=== PATIENT | female | born 1960 | race Caucasian/White ===

== ENCOUNTER 2016-06-12 18:42 | Emergency (ER) | payer OTHER ==
[~2016-06-12] VITALS: Ht 160 cm; Wt 80.5 kg
[~2016-06-12 18:42] MED LIST: ACET500C5 PO; CETI10CA PO; CIPR500T4 PO; CLIN-73 PO; CYCL5TAB PO; GLIM1TAB2 PO; GUAI120S26 PO; HYDR-906 PO; IBUP-1542 PO; METF500T4 PO; NITR-58 PO; ONDA4TAB14 PO; PHEN-538 PO
[2016-06-12 18:48] VITALS: Ht 160 cm; Wt 80.5 kg
[2016-06-12] MEDS ORDERED: MUPI22OI2 TOP (20:39)
[2016-06-12] MEDS ORDERED: FLUC150T17 PO (20:39)
[2016-06-12] MEDS ORDERED: CEPH-443 PO (20:39)
--- NOTE | 2016-06-12 20:41 | ERD ---
ER Documentation Chief Complaint Date/Time DATE: 06/12/16 TIME: 20:39 Chief Complaint right leg pain, redness, swelling warm to touch HPI 55-year-old woman presents with irritation to the medial aspect of the right lower leg and itching and irritation to the inner thigh creases bilaterally, she is worried about candidal skin infection. Last month she was diagnosed with a right lower extremity cellulitis and treated as an inpatient, and discharged with ciprofloxacin to use 10 days, she only used 6 days worth. This time around she denies fevers or chills, no pain with ambulation, no calf or leg swelling. Patient denies chest pain or shortness of breath, no headache or blurry vision, no dysuria or increased urinary frequency. ROS All systems reviewed and are negative except as per history of present illness. Medications Home Meds Active Scripts Mupirocin* (Bactroban*) 2% -22 Gram Oint...g., 1 APPLIC TOP BID for 14 Days, #1 TUB Prov:HERB HA MD 06/12/16 Cephalexin* (Keflex*) 500 Mg Capsule, 500 MG PO TID for 7 Days, CAP Prov:HERB HA MD 06/12/16 Fluconazole* (Diflucan*) 150 Mg Tablet, 150 MG PO ONCE, #1 TAB Prov:HERB HA MD 06/12/16 Clindamycin Hcl* (Clindamycin Hcl*) 300 Mg Capsule, 300 MG PO TID for 10 Days, CAP Prov:PETE GEIGER PA-C 05/11/16 Acetaminophen* (Tylophen*) 500 Mg Capsule, 1 CAP PO Q6H Y for PAIN AND OR ELEVATED TEMP, #20 CAP Prov:JANIYA GARBER NP 05/09/16 Cetirizine Hcl* (Zyrtec*) 10 Mg Capsule, 10 MG PO DAILY, #30 TAB.CHEW Prov:JANIYA GARBER NP 05/09/16 Ajahwxhfoqn-Y-Wwxtxpckkd Hb* (Guaifenesin* DM Syrup) 120 Ml Syrup, 10 ML PO Q4H Y for COUGH, #120 ML Prov:JANIYA GARBER NP 05/09/16 Phenazopyridine Hcl* (Pyridium*) 200 Mg Tab, 200 MG PO TID Y for URINARY PAIN, # 6 TAB Prov:JANIYA GARBER NP 05/09/16 Ondansetron (Ondansetron Odt) 4 Mg Tab.rapdis, 4 MG PO Q8 Y for NAUSEA AND/OR VOMITING, #30 TAB Prov:JANIYA GARBER NP 05/09/16 Ciprofloxacin Hcl* (Ciprofloxacin Hcl*) 500 Mg Tablet, 500 MG PO BID for 10 Days , TAB Prov:JANIYA GARBER NP 05/09/16 Hydrocodone/Acetaminophen ([place] 5-325 Tablet) 1 Each Tablet, 1 TAB PO Q6H Y for PAIN, #7 TAB Prov:LEENA DESAI NP 04/29/16 Ibuprofen* (Motrin*) 600 Mg Tab, 600 MG PO Q6, #15 TAB Prov:LEENA DESAI NP 04/29/16 Nitrofurantoin Monohyd Macrocr* (Macrobid*) 100 Mg Capsr, 100 MG PO BID for 5 Days, CAP Prov:LEENA DESAI NP 04/29/16 Cyclobenzaprine Hcl* (Cyclobenzaprine Hcl*) 5 Mg Tablet, 5 MG PO Q8H Y for PAIN for 7 Days, TAB Prov:SNEHAL HINTON PA-C 03/03/15 Reported Medications Nitrofurantoin Monohyd Macrocr* (Macrobid*) Unknown Strength Capsr, PO BID, CAP 05/09/16 Glimepiride* (Glimepiride*) Unknown Strength Tablet, PO WITH BREAKFAST DINNE, TAB 05/09/16 Metformin* (Glucophage*) Unknown Strength Tab, PO DAILY, #20 TAB 05/09/16 Allergies Allergies: Coded Allergies: No Known Allergy (Unverified , 05/09/16) PMhx/Soc Hypertension History of Surgery: Yes (tonsillectomy, appendectomy) Anesthesia Reaction: No Hx Neurological Disorder: No Hx Respiratory Disorders: No Hx Cardiac Disorders: No Hx Psychiatric Problems: No Hx Alcohol Use: No Hx Substance Use: No Hx Tobacco Use: No Smoking Status: Never smoker FmHx Family History: No diabetes Physical Exam Vitals Vital Signs Date Time Temp Pulse Resp B/P Pulse Ox O2 Delivery O2 Flow Rate FiO2 06/12/16 18:48 97.0 94 20 141/83 97 Physical Exam GENERAL: Well-developed, well-nourished, well-hydrated, in no apparent distress , looks nontoxic in appearance HEENT: Moist mucous membranes, pink conjunctiva, no cervical spine tenderness or step-off deformities, no goiter, no jaundice or icterus, extraocular movements intact without pain. No submandibular induration, and no pharyngeal erythema NEURO: Alert and oriented 3, cranial nerves II through XII intact bilaterally, pupils equal round reactive to light, no focal deficits or facial asymmetry, sensation intact distally Strength 5/5 in upper and lower extremities bilaterally CARDIAC: Regular rate and rhythm, no murmurs rubs or gallops LUNGS: Clear bilaterally no wheezing crackles or stridor ABDOMEN: Soft nontender, no guarding, no rigidity, no rebound, no psoas sign no obturator sign. Normoactive bowel sounds SKIN: Warm and dry to touch, superficial irritation to the medial aspect of the right lower leg without skin induration or purulent discharge, no lacerations, no ecchymosis, no target lesions, and without ulcers EXTREMITIES: No clubbing cyanosis or edema, calves are bilaterally symmetrical, no Homans sign, no popliteal cord sign. Distal pulses equal and bilateral PSYCH: Normal affect without agitation or irritability Results 24 hrs Current Medications Medications (Trade) Dose Ordered Sig/[place] Route PRN Reason Start Time Stop Time Status Last Admin Dose Admin Fluconazole (Diflucan) 100 mg ONCE ONCE PO 06/12/16 21:00 06/12/16 21:01 DC 06/12/16 21:00 Procedures/MDM Given her concern and my suspicion I administered fluconazole 100 mg p.o. for vaginitis. I will treat her as as an outpatient for vaginitis and possible early cellulitis of the right lower leg given her recent history, although I suspect this is very early in its course and may even be secondary only to cold weather related dermatitis and chronic mild stasis dermatitis. I reviewed her previous medical records. Differential diagnoses considered, included but not limited to acute coronary syndrome, pulmonary embolism, aortic dissection, abdominal aortic aneurysm, sepsis, stroke, meningitis, encephalitis, pneumonia, appendicitis, cholecystitis , bowel obstruction, pyelonephritis, nephrolithiasis, cystitis, as well as metabolic, hematologic, and electrolyte abnormalities. As well as abscess, cellulitis, fractures, and dislocations. Patient feels much better at this time, and vital signs are normal, symptoms have improved. I did give strict instructions to return to the ED if symptoms continue or worsen, patient will otherwise follow-up with primary care physician. Patient understood instructions and agreed to plan. Departure Diagnosis: Primary Impression: Vaginitis Chronicity: acute Qualified Code: N76.0 - Acute vaginitis Additional Impression: Cellulitis of right lower leg Condition: Good Patient Instructions: Cellulitis, Vaginitis, Yanelis HERB HA MD Jun 12, 2016 20:40
[2016-06-12] MEDS ORDERED: FLUCONAZOLE 100 MG TAB PO ONE (21:00)
== END 2016-06-12 21:05 | disposition home or self-care (01) ==
LOC: FTE 18:42
DX: N76.0 Acute vaginitis (principal); L03.115 Cellulitis of right lower limb; Z79.84 Long term (current) use of oral hypoglycemic drugs
CPT/HCPCS: Z7502; Z7610; 99284

== ENCOUNTER 2016-11-27 22:41 | Emergency (ER) | payer OTHER ==
[~2016-11-27] VITALS: Ht 160 cm; Wt 81.5 kg
[~2016-11-27 22:41] MED LIST changes: +CEPH-443 PO; +FLUC150T17 PO; +MUPI22OI2 TOP
[2016-11-27 22:46] VITALS: Ht 160 cm; Wt 81.5 kg
[2016-11-27] MEDS ORDERED: CLOT21CR6 VAGINAL (23:39)
[2016-11-27] MEDS ORDERED: CLOT30CR24 TOP (23:39)
[2016-11-27] MEDS ORDERED: CEPH-443 PO (23:39)
[2016-11-27] MEDS ORDERED: IBUP-1542 PO (23:39)
[2016-11-27] MEDS ORDERED: NPH10OT LEFT EAR (23:39)
[2016-11-27] MEDS ORDERED: SULF1TAB31 PO (23:39)
--- NOTE | 2016-11-27 23:59 | ERD ---
ER Documentation Chief Complaint Date/Time DATE: 11/27/16 TIME: 23:50 Chief Complaint left earache x 2 days HPI 36-year-old female sent to emergency department for multiple complaints. Patient is complaining of left ear pain for 2 days, sharp pain, 4/10 worse upon movement of the outer ear, feels swollen inside. Patient denies any discharge. Patient denies any trauma in the ear. Patient denies any fever or chills. Patient is also complaining of right lower leg skin abrasion denies complaining of some pain, worried that she may have another cellulitis. Patient's complaining of pain on the abrasion area sharp pain 4/10 scale, is worse upon touching the area. Patient also is complaining of vaginal itching and whitish vaginal discharge. Patient has a yeast infection before, once medication for this, patient stated that she has taken it before and has helped. ROS All systems reviewed and are negative except as per history of present illness. Medications Home Meds Active Scripts Clotrimazole (Clotrimazole 3) 21 Gm Cream.appl, 1 APPFUL VAGINAL QHS for 7 Days , #1 TUB Prov:JANIYA GARBER NP 11/27/16 Clotrimazole* (Clotrimazole* AF) 1% - 30 Gm Cream.gm., 1 APPLIC TOP BID for 7 Days, TUB Prov:JANIYA GARBER NP 11/27/16 Neomycin/Polymyxin/Hydrocort* (Cortisporin* Otic) 10 Ml Susp, 4 DROP LEFT EAR QID for 7 Days, EA Prov:JANIYA GARBER NP 11/27/16 Ibuprofen* (Motrin*) 600 Mg Tab, 600 MG PO Q6H Y for PAIN AND OR ELEVATED TEMP, #30 TAB Prov:JANIYA GARBER NP 11/27/16 Cephalexin* (Keflex*) 500 Mg Capsule, 500 MG PO QID for 10 Days, CAP Prov:JANIYA GARBER NP 11/27/16 Sulfamethoxazole/Trimethoprim* (Bactrim Ds* Tablet) 1 Each Tablet, 1 TAB PO BID , #20 TAB Prov:JANIYA GARBER NP 11/27/16 Mupirocin* (Bactroban*) 2% -22 Gram Oint...g., 1 APPLIC TOP BID for 14 Days, #1 TUB Prov:HERB HA MD 06/12/16 Cephalexin* (Keflex*) 500 Mg Capsule, 500 MG PO TID for 7 Days, CAP Prov:HERB HA MD 06/12/16 Fluconazole* (Diflucan*) 150 Mg Tablet, 150 MG PO ONCE, #1 TAB Prov:HERB HA MD 06/12/16 Clindamycin Hcl* (Clindamycin Hcl*) 300 Mg Capsule, 300 MG PO TID for 10 Days, CAP Prov:PETE GEIGER PA-C 05/11/16 Acetaminophen* (Tylophen*) 500 Mg Capsule, 1 CAP PO Q6H Y for PAIN AND OR ELEVATED TEMP, #20 CAP Prov:JANIYA GARBER NP 05/09/16 Cetirizine Hcl* (Zyrtec*) 10 Mg Capsule, 10 MG PO DAILY, #30 TAB.CHEW Prov:JANIYA GARBER NP 05/09/16 Abjdqjkxmfx-M-Wlxhnuluax Hb* (Guaifenesin* DM Syrup) 120 Ml Syrup, 10 ML PO Q4H Y for COUGH, #120 ML Prov:JANIYA GARBER NP 05/09/16 Phenazopyridine Hcl* (Pyridium*) 200 Mg Tab, 200 MG PO TID Y for URINARY PAIN, # 6 TAB Prov:JANIYA GARBER NP 05/09/16 Ondansetron (Ondansetron Odt) 4 Mg Tab.rapdis, 4 MG PO Q8 Y for NAUSEA AND/OR VOMITING, #30 TAB Prov:JANIYA GARBER NP 05/09/16 Ciprofloxacin Hcl* (Ciprofloxacin Hcl*) 500 Mg Tablet, 500 MG PO BID for 10 Days , TAB Prov:JANIYA GARBER NP 05/09/16 Hydrocodone/Acetaminophen ([place] 5-325 Tablet) 1 Each Tablet, 1 TAB PO Q6H Y for PAIN, #7 TAB Prov:LEENA DESAI NP 04/29/16 Ibuprofen* (Motrin*) 600 Mg Tab, 600 MG PO Q6, #15 TAB Prov:LEENA DESAI PROCESS ANALYST 04/29/16 Nitrofurantoin Monohyd Macrocr* (Macrobid*) 100 Mg Capsr, 100 MG PO BID for 5 Days, CAP Prov:LEENA DESAI PROCESS ANALYST 04/29/16 Cyclobenzaprine Hcl* (Cyclobenzaprine Hcl*) 5 Mg Tablet, 5 MG PO Q8H Y for PAIN for 7 Days, TAB Prov:SNEHAL HINTON PA-C 03/03/15 Reported Medications Nitrofurantoin Monohyd Macrocr* (Macrobid*) Unknown Strength Capsr, PO BID, CAP 05/09/16 Glimepiride* (Glimepiride*) Unknown Strength Tablet, PO WITH BREAKFAST DINNE, TAB 05/09/16 Metformin* (Glucophage*) Unknown Strength Tab, PO DAILY, #20 TAB 05/09/16 Allergies Allergies: Coded Allergies: No Known Allergy (Unverified , 05/09/16) PMhx/Soc Medical and Surgical Hx: pt denies Medical Hx History of Surgery: Yes (tonsillectomy, appendectomy) Anesthesia Reaction: No Hx Neurological Disorder: No Hx Respiratory Disorders: No Hx Cardiac Disorders: No Hx Psychiatric Problems: No Hx Alcohol Use: No Hx Substance Use: No Hx Tobacco Use: No Smoking Status: Never smoker FmHx Family History: No coronary disease, No diabetes, No other Physical Exam Vitals Vital Signs Date Time Temp Pulse Resp B/P Pulse Ox O2 Delivery O2 Flow Rate FiO2 11/27/16 22:46 98.3 98 20 147/66 98 Physical Exam GENERAL: The patient is well developed and appropriate for usual state of health, in no apparent distress. HEENT: Atraumatic. Ears: Normal tympanic membrane, no erythema or bulging. Left ear canal noted to be erythematous and swollen. Right ear canal is normal. Nose : normal nasal turbinates, no erythema or swelling. Normal nasal discharge. Throat: oropharynx clear. No tonsillar swelling or tonsillar exudates. No lymphadenopathy. CHEST: Clear to auscultation bilaterally. There are no rales, wheezes or rhonchi. HEART: Regular rate and rhythm. No murmurs, clicks, rubs or gallops. No S3 or S4. ABDOMEN: Soft, nontender and nondistended. Good bowel sounds. No rebound or guarding. No gross peritonitis. No gross organomegaly or masses. No Olvera sign or McBurney point tenderness. BACK: No midline or flank tenderness. EXTREMITIES: Equal pulses bilaterally. There is no peripheral clubbing, cyanosis or edema. No focal swelling or erythema. Full range of motion. Grossly neurovascularly intact. NEURO: Alert and oriented. Cranial nerves 2-12 intact. Motor strength in all 4 extremities with 5/5 strength. Sensation grossly intact. Normal speech and gait. SKIN: Noted abrasion on the right lower leg with mild erythema surrounding the area, tenderness on palpation, no fluctuance noted. Negative Homans sign. There is no apparent rash or petechia. The skin is warm and dry. HEMATOLOGIC AND LYMPHATIC: There is no evidence of excessive bruising or lymphedema. No gross cervical, axillary, or inguinal lymphadenopathy. Procedures/MDM Medical decision making: Patient symptoms is likely consistent with otitis externa, no symptoms of otitis media or mastoiditis. No foreign body. No TM perforation. No symptoms of any malignant otitis. Patient also has right lower leg mild cellulitis, no symptoms of any abscess, negative Homans sign, no suspicion for DVT. Patient's of vaginal itching most likely consistent with nicole, will be given clotrimazole vaginal cream and clotrimazole 1% cream. Prescription was given for Bactrim, Keflex Corticosporin otic drops, ibuprofen, is advised to follow-up with primary care doctor in 2-3 days for reevaluation of her symptoms. Patient was advised to return to emergency department. Disposition: Home. Stable. Departure Diagnosis: Primary Impression: Left otitis externa Otitis externa type: unspecified type Chronicity: acute Qualified Code: H60.502 - Acute otitis externa of left ear, unspecified type Additional Impressions: Nicole vaginitis Cellulitis of right lower leg Condition: Stable Patient Instructions: Cellulitis, Vaginitis, Nicole, External Ear Infection ( Adult) JANIYA GARBER NP Nov 27, 2016 23:59
== END 2016-11-28 00:26 | disposition home or self-care (01) ==
LOC: FTE 22:41
DX: H60.502 Unspecified acute noninfective otitis externa, left ear (principal); B37.3 Candidiasis of vulva and vagina; L03.115 Cellulitis of right lower limb; Z79.84 Long term (current) use of oral hypoglycemic drugs
CPT/HCPCS: 99284

== ENCOUNTER 2017-09-14 09:25 | Emergency (ER) | END 2017-09-14 10:52 | disposition home or self-care (01) ==

== ENCOUNTER 2017-11-04 11:56 | Emergency (ER) | END 2017-11-04 13:30 | disposition home or self-care (01) ==

== ENCOUNTER 2018-01-31 18:09 | Emergency (ER) | END 2018-01-31 20:56 | disposition home or self-care (01) ==

== ENCOUNTER 2018-04-19 12:14 | Emergency (ER) | END 2018-04-19 14:03 | disposition home or self-care (01) ==

== ENCOUNTER 2018-04-21 13:29 | Emergency (ER) | END 2018-04-21 16:15 | disposition home or self-care (01) ==

== ENCOUNTER 2018-06-24 14:57 | Emergency (ER) | payer OTHER ==
[~2018-06-24] VITALS: Ht 154.9 cm; Wt 75.0 kg
[~2018-06-24 14:57] MED LIST changes: -ACET500C5 PO; -CEPH-443 PO; -CETI10CA PO; +CILO100T PO; -CIPR500T4 PO; -CLIN-73 PO; -CYCL5TAB PO; -FLUC150T17 PO; -GLIM1TAB2 PO; +GLIM4TAB PO; -GUAI120S26 PO; -HYDR-906 PO; -IBUP-1542 PO; +LIDO700A29 TP; +LINA5TAB PO; -METF500T4 PO; +METF850T13 PO; -NITR-58 PO; -ONDA4TAB14 PO; -PHEN-538 PO; +RAMI2.5C36 PO
[2018-06-24 15:12] VITALS: Ht 154.9 cm; Wt 75.0 kg
[2018-06-24] MEDS ORDERED: KETOROLAC 60 MG INJ IM STA (16:03)
--- NOTE | 2018-06-24 16:11 | ERD ---
ER Documentation Chief Complaint Chief Complaint DYSURIA WITH BACK PAIN SINCE THIS AM & FREQ URINATION HPI This is a 57-year-old female with a history of diabetes mellitus who presents ED with complaints of bilateral low back pain times 3 days. Patient denies any fall or injury to account for back pain. Patient states that she has had a similar back pain in the past. Patient states that the low back pain is worsened by movement and walking, rates it 8 out of 10. Denies tingling, numbness, lack sensation, bowel/bladder incontinence, saddle paresthesias, fever, chills, history of IV drug abuse. Patient also states that she has increased frequency of urination but she states that this is because she has been drinking a lot of water. Denies dysuria, hematuria and all other symptoms. ROS All systems reviewed and are negative except as per history of present illness. Medications Home Meds Active Scripts Diclofenac Sodium* (Voltaren* Gel) 1% -100 Gm Gel, 2 GM TOP QID, #1 TUB Prov:ERON STOKES PA-C 06/24/18 Naproxen* (Naprosyn*) 500 Mg Tablet, 500 MG PO BID PRN for PAIN AND/OR INFLAMMATION, #30 TAB Prov:ERON STOKES PA-C 06/24/18 Cyclobenzaprine Hcl* (Cyclobenzaprine Hcl*) 10 Mg Tablet, 10 MG PO TID, #15 TAB Prov:ERON STOKES PA-C 06/24/18 Mupirocin* (Bactroban*) 2% -22 Gram Oint...g., 1 APPLIC TOP TID for 7 Days, #30 GM Prov:HERB HA MD 04/21/18 Lidocaine (Lidoderm) 1 Each Adh..patch, 1 EACH TP TID PRN for PAIN, #1 TUB Prov:HERB HA MD 04/21/18 Reported Medications Linagliptin (TRADJENTA) 5 Mg Tablet, 5 MG PO DAILY, TAB 04/21/18 Cilostazol* (Cilostazol*) 100 Mg Tablet, 100 MG PO BID, TAB 04/21/18 Glimepiride* (Glimepiride*) 4 Mg Tablet, 4 MG PO WITH BREAKFAST DINNE, TAB 04/21/18 Ramipril (Ramipril) 2.5 Mg Capsule, 2.5 MG PO BID, CAP 04/21/18 Metformin Hcl* (Metformin Hcl*) 850 Mg Tablet, 850 MG PO WITH BREAKFAST DINNE, #60 TAB 04/21/18 Allergies Allergies: Coded Allergies: No Known Allergy (Unverified , 04/19/18) PMhx/Soc History of Surgery: Yes (tonsillectomy, appendectomy) Anesthesia Reaction: No Hx Neurological Disorder: No Hx Respiratory Disorders: No Hx Cardiac Disorders: No Hx Psychiatric Problems: No Hx Miscellaneous Medical Probl: Yes (dm2) Hx Alcohol Use: No Hx Substance Use: No Hx Tobacco Use: No FmHx Family History: diabetes Physical Exam Vitals Vital Signs Date Temp Pulse Resp B/P (MAP) Pulse Ox O2 O2 Flow FiO2 Time Delivery Rate 06/24/18 99.0 88 18 137/65 97 15:12 (89) Physical Exam Physical Exam Vitals signs: Reviewed by me. General: Well developed, well nourished, in no acute distress. Patient is awake and alert. Head: Normocephalic, atraumatic. Eyes: Normal conjunctiva, Pupils PERRLA, EOM intact grossly ENT: Pharynx is clear, Moist mucous membranes, external ears, nose and mouth normal Neck: Supple, no masses, lymphadenopathy or JVD Respiratory: Clear to auscultation bilaterally with no wheezing, rhonchi, rales, no distress Cardiovascular: RRR, no murmurs, rubs, or gallops Abdominal: Soft, non-tender, non-distended, no peritoneal signs Back: No midline tenderness. No flank tenderness, no thoracic or lumbar midline tenderness, there is mild tenderness palpation along the paravertebral muscles in the lumbar spine, straight leg raise negative Neurologic: Alert and oriented, moving all extremities, normal speech, no focal weakness, no cerebellar signs. Normal mentation Skin: warm and dry, No rash Psych: Normal mood Results 24 hrs Laboratory Tests Test 06/24/18 15:35 06/24/18 15:53 Urine Color STRAW Urine Clarity CLEAR Urine pH 6.0 Urine Specific [place] 1.030 Urine Ketones NEGATIVE mg/dL Urine Nitrite NEGATIVE mg/dL Urine Bilirubin NEGATIVE mg/dL Urine Urobilinogen NEGATIVE mg/dL Urine Leukocyte Esterase NEGATIVE Gerry/ul Urine Hemoglobin NEGATIVE mg/dL Urine Glucose 3+ mg/dL Urine Total Protein NEGATIVE mg/dl Bedside Urine pH (LAB) 5.5 Bedside Urine Protein (LAB) Negative Bedside Urine Glucose (UA) 0.50% Bedside Urine Ketones (LAB) Negative Bedside Urine Blood Negative Bedside Urine Nitrite (LAB) Negative Bedside Urine Leukocyte Esterase (L Negative Current Medications Medications Dose Sig/Stan[place] Start Time Status Last (Trade) Ordered Route PRN Stop Time Admin Dose Reason Admin Ketorolac 60 mg ONCE STAT 06/24/18 DC Tromethamine IM 16:03 (Toradol) 06/24/18 16:04 10 mg ONCE ONCE 06/24/18 DC 06/24/18 Cyclobenzapri PO 16:30 16:09 ne HCl 06/24/18 16:31 (Flexeril) Procedures/MDM LAB INTERPRETATION: UA unremarkable ER COURSE: The patient was given Toradol and Flexeril for back pain The medication was well tolerated and the patient reports improvement in symptoms. The patient was stable throughout ED course. I kept the patient and/or family informed of laboratory and diagnostic imaging results throughout the emergency room course. The patient was promptly evaluated and a treatment plan was devised based on H&P and other data. This plan was discussed with the patient who agreed and had no further questions or concerns prior to discharge. MEDICAL DECISION MAKING: [This is a 57-year-old female presents ED with low back pain times 3-4 days. Patient admits to some increased frequency of urination but states that she is been drinking more water and this is normal for her. Given location of back pain being along the paravertebral muscles this is likely a muscle strain or muscle related pain. Urinalysis is unremarkable. History and physical examination other data not consistent with processing including cauda equina syndrome, cord compression, infiltrative etiology, infectious etiology, epidural abscess, fracture, obstructive pyelonephritis, abdominal aortic aneurysm. Vitals are stable and patient can be managed outpatient with close follow-up. Advised patient to follow up with primary care in the next 48 hours. return to ED with any worsening symptoms DISPOSITION PLAN: We discussed follow up with the patient's primary care doctor within 24 to 48 hours. Patient counseled regarding my diagnostic impression and care plan. Prior to discharge all questions answered. Pt agrees with treatment plan and understands strict return precautions. Precautionary instructions provided including instructions to return to the ER if not improving or for any worsening or changing symptoms or concerns. SPECIALIST FOLLOW UP RECOMMENDED: None Patient has been advised to follow up with primary care in 1-2 days. Disclaimer: Inadvertent spelling and grammatical errors are likely due to EHR/dictation software use and do not reflect on the overall quality of patient care. Also, please note that the electronic time recorded on this note does not necessarily reflect the actual time of the patient encounter. Blood Pressure Assessment: Patient's blood pressure was elevated (>120/80) but appears stable without evidence of hypertension emergency or urgency. The patient was counseled about the risks of hypertension and urged to pursue outpatient monitoring and therapy within a week with their primary care physician. Departure Diagnosis: Primary Impression: Lower back pain Chronicity: acute Back pain laterality: bilateral Sciatica presence: without sciatica Qualified Codes: M54.5 - Low back pain Condition: Stable Patient Instructions: Back And Neck Pain, General, Causes of Lumbar (Low Back) Pain Referrals: [facility] Additional Instructions: Patient advised to return to the ED immediately for new or worsening symptoms. Patient advised to follow up with primary care provider in the next 24-48 hours. Patient verbalized understanding and agrees with treatment plan and course of action. If patient has no primary care they may follow up with one of the community clinics listed on the following page or one of the options listed below [facility]LY [facility] + [facility] [address] [place] [id number] or [facility] [address] [place] [address] or [facility] [address] [place] [address] ERON STOKES PA-C Jun 24, 2018 16:11
[2018-06-24] MEDS ORDERED: CYCLOBENZAPRINE 10 MG TAB PO ONE (16:30)
[2018-06-24] MEDS ORDERED: CYCL10TA7 PO (16:43)
[2018-06-24] MEDS ORDERED: NAPR-985 PO (16:43)
[2018-06-24] MEDS ORDERED: DICL100G37 TOP (16:43)
[2018-06-24 16:50] VITALS: BP 135/64; PULSE 88; RESP 16
== END 2018-06-24 16:50 | disposition home or self-care (01) ==
LOC: FTE 14:57
DX: M54.5 Low back pain (principal); E11.9 Type 2 diabetes mellitus without complications; Z79.84 Long term (current) use of oral hypoglycemic drugs
CPT/HCPCS: 81003; 87086; Z7502; Z7610; 99283; J1885

== ENCOUNTER 2018-08-05 17:03 | Emergency (ER) | payer OTHER ==
[~2018-08-05] VITALS: Ht 157.5 cm; Wt 73.5 kg
[~2018-08-05 17:03] MED LIST changes: +CYCL10TA7 PO; +DICL100G37 TOP; +NAPR-985 PO
[2018-08-05 17:09] VITALS: Ht 157.5 cm; Wt 73.5 kg
[2018-08-05] MEDS ORDERED: ACETAMINOPHEN 500 MG TAB PO STA (17:32)
--- NOTE | 2018-08-05 17:41 | ERD ---
ER Documentation Chief Complaint Chief Complaint CONGESTION X 4 DAYS HPI 57-year-old female with history of hypertension and diabetes is here complaining of fever and cough for the past 4 days. She also admits to diarrhea. No nausea or vomiting. She is also stating that she been getting occasional chest pain over the past 4 days that she is not sure if it is related to her illness. She denies any cardiac past medical history. At this time she has no chest pain palpitations or shortness of breath. She took antipyretics yesterday but none today. She did not get a flu shot this year. ROS All systems reviewed and are negative except as per history of present illness. Medications Home Meds Active Scripts Azithromycin* (Zithromax*) 250 Mg Tablet, 250 MG PO .ANDREW DIRECTED, #6 TAB TAKE 500 MG (2 TABS) THE FIRST DAY THEN 250 MG (1 TAB) DAYS 2-5 Prov:JASON OTERO PA-C 08/05/18 Diclofenac Sodium* (Voltaren* Gel) 1% -100 Gm Gel, 2 GM TOP QID, #1 TUB Prov:ERON STOKES PA-C 06/24/18 Naproxen* (Naprosyn*) 500 Mg Tablet, 500 MG PO BID PRN for PAIN AND/OR INFLAMMATION, #30 TAB Prov:ERON STOKES PA-C 06/24/18 Cyclobenzaprine Hcl* (Cyclobenzaprine Hcl*) 10 Mg Tablet, 10 MG PO TID, #15 TAB Prov:ERON STOKES PA-C 06/24/18 Mupirocin* (Bactroban*) 2% -22 Gram Oint...g., 1 APPLIC TOP TID for 7 Days, #30 GM Prov:HERB HA MD 04/21/18 Lidocaine (Lidoderm) 1 Each Adh..patch, 1 EACH TP TID PRN for PAIN, #1 TUB Prov:HERB HA MD 04/21/18 Reported Medications Linagliptin (TRADJENTA) 5 Mg Tablet, 5 MG PO DAILY, TAB 04/21/18 Cilostazol* (Cilostazol*) 100 Mg Tablet, 100 MG PO BID, TAB 04/21/18 Glimepiride* (Glimepiride*) 4 Mg Tablet, 4 MG PO WITH BREAKFAST DINNE, TAB 04/21/18 Ramipril (Ramipril) 2.5 Mg Capsule, 2.5 MG PO BID, CAP 04/21/18 Metformin Hcl* (Metformin Hcl*) 850 Mg Tablet, 850 MG PO WITH BREAKFAST DINNE, #60 TAB 04/21/18 Allergies Allergies: Coded Allergies: No Known Allergy (Unverified , 08/05/18) PMhx/Soc History of Surgery: Yes (tonsillectomy, appendectomy) Anesthesia Reaction: No Hx Neurological Disorder: No Hx Respiratory Disorders: No Hx Cardiac Disorders: No Hx Psychiatric Problems: No Hx Miscellaneous Medical Probl: Yes (dm2) Hx Alcohol Use: No Hx Substance Use: No Hx Tobacco Use: No FmHx Family History: No diabetes Physical Exam Vitals Vital Signs Date Temp Pulse Resp B/P (MAP) Pulse Ox O2 O2 Flow FiO2 Time Delivery Rate 08/05/18 102.6 103 18 136/65 100 17:09 (88) Physical Exam INITIAL VITAL SIGNS: Reviewed by me GENERAL: Awake, alert and oriented x 4, well appearing, nontoxic, speaking in full sentences. No acute distress HEAD: Atraumatic NECK: Supple. No masses. Full range of motion. No meningismus. No midline tenderness. THROAT: No tonilar erythema or edema. No exudates. Uvula midline. No kissing to nsils. RESPIRATORY: Clear to auscultation bilaterally. Symmetric chest wall rise. No wheezing or rales. No accessory muscle use. CV: Regular rate and rhythm. No murmurs, rubs, or gallops. ABDOMEN: Soft, non-distended. Nontender. Negative [place]. Negative [place] point tenderness. No CVA tenderness bilaterally. No guarding. No rebound. Result Diagram: 08/05/18 1745 08/05/18 1745 Results 24 hrs Laboratory Tests Test 08/05/18 17:45 White Blood Count 4.7 10^3/ul Red Blood Count 4.82 10^6/ul Hemoglobin 13.4 g/dl Hematocrit 39.3 % Mean Corpuscular Volume 81.5 fl Mean Corpuscular Hemoglobin 27.8 pg Mean Corpuscular Hemoglobin Concent 34.1 g/dl Red Cell Distribution Width 12.8 % Platelet Count 124 10^3/UL Mean Platelet Volume 10.2 fl Immature Granulocytes % 0.600 % Neutrophils % 64.6 % Lymphocytes % 26.4 % Monocytes % 8.0 % Eosinophils % 0.2 % Basophils % 0.2 % Nucleated Red Blood Cells % 0.0 /100WBC Immature Granulocytes # 0.030 10^3/ul Neutrophils # 3.1 10^3/ul Lymphocytes # 1.3 10^3/ul Monocytes # 0.4 10^3/ul Eosinophils # 0.0 10^3/ul Basophils # 0.0 10^3/ul Nucleated Red Blood Cells # 0.0 10^3/ul Sodium Level 132 mmol/L Potassium Level 4.2 mmol/L Chloride Level 95 mmol/L Carbon Dioxide Level 25 mmol/L Anion Gap 12 Blood Urea Nitrogen 8 mg/dl Creatinine 0.42 mg/dl Est Glomerular Filtrat Rate mL/min > 60 mL/min Glucose Level 255 mg/dl Calcium Level 8.8 mg/dl Troponin I < 0.012 ng/ml Current Medications Medications Dose Sig/[place] Start Time Status Last (Trade) Ordered Route PRN Stop Time Admin Dose Reason Admin 1,000 mg ONCE STAT 08/05/18 DC 08/05/18 Acetaminophen PO 17:32 08/05/18 17:40 (Tylenol 17:33 Tab) Procedures/MDM This patient is here with fever and flulike symptoms. She is also complaining of intermittent chest pain over the past 4 days. She has no cardiac past medical history. Her EKG is normal with no evidence of ST elevation or acute i schemic changes. Laboratory analysis shows no evidence of acute emergent abnormality. No evidence of significant leukocytosis suggesting systemic infection or severe anemia. No evidence of acute renal or liver failure, no evidence of severe alkalosis or acidosis. Troponin is also negative. Chest x- ray negative. Flu test negative. Patient likely has bronchitis. Discharged with a azithromycin. Patient counseled regarding my diagnostic impression and care plan. Prior to discharge all questions answered. Pt agrees with treatment plan and understands strict return precautions. Pt is instructed to follow up with primary care provider within 24-48 hours. Precautionary instructions provided including instructions to return to the ER if not improving or for any worsening or changing symptoms or concerns. Departure Diagnosis: Primary Impression: Bronchitis Condition: Stable JASON OTERO PA-C Aug 05, 2018 17:41
[2018-08-05] MEDS ORDERED: AZIT250T PO (18:51)
[2018-08-05 19:04] VITALS: BP 108/58; PULSE 91; RESP 16
== END 2018-08-05 19:14 | disposition home or self-care (01) ==
LOC: FTE 17:03
DX: J40 Bronchitis, not specified as acute or chronic (principal); I10 Essential (primary) hypertension; E11.9 Type 2 diabetes mellitus without complications; Z79.84 Long term (current) use of oral hypoglycemic drugs
CPT/HCPCS: 71045; 80048; 84484; 85025; 87400; 93005; Z7502; Z7610